=== PATIENT | male | born 1995 | race American Indian/Alaskan Native ===

== ENCOUNTER 2016-12-06 18:45 | Emergency (ER) | payer BC ==
[2016-12-07] MEDS ORDERED: FLEXERIL PO ONE (02:04)
[2016-12-07] MEDS ORDERED: NORCO 5/325 PO ONE (02:04)
--- NOTE | 2016-12-07 02:40 | Emergency Department Report ---
ED Male HPI - General Chief complaint: Urogenital-Male Stated complaint: MALE PARTS HURT Source: patient Mode of arrival: Ambulatory Limitations: No Limitations - Related Data Previous Rx's Medication Instructions Recorded Last Taken Type Acetaminophen/Codeine [Tylenol #3] 1 tab PO Q6H PRN #14 tab 02/05/15 Unknown Rx Amoxicillin/K Clav Tab [Augmentin 1 tab PO Q12HR #14 tab 02/05/15 Unknown Rx 875 mg] Cetirizine HCl [Allergy Relief] 10 mg PO DAILY #14 tablet 02/05/15 Unknown Rx Fluticasone [Flonase] 1 spray NS QDAY #1 bottle 02/05/15 Unknown Rx Ibuprofen [Motrin] 600 mg PO Q8H PRN #60 tablet 02/05/15 Unknown Rx Allergies Allergy/AdvReac Type Severity Reaction Status Date / Time No Known Allergies Allergy Unverified 02/05/15 03:39 ED Review of Systems ROS: Stated complaint: MALE PARTS HURT Other details as noted in HPI ED Past Medical Hx - Past Medical History Previous Medical History?: No - Surgical History Past Surgical History?: No - Social History Smoking Status: Never Smoker Substance Use Type: None - Medications Home Medications: Home Medications Medication Instructions Recorded Confirmed Last Taken Type Acetaminophen/Codeine [Tylenol #3] 1 tab PO Q6H PRN #14 tab 02/05/15 Unknown Rx Amoxicillin/K Clav Tab [Augmentin 1 tab PO Q12HR #14 tab 02/05/15 Unknown Rx 875 mg] Cetirizine HCl [Allergy Relief] 10 mg PO DAILY #14 tablet 02/05/15 Unknown Rx Fluticasone [Flonase] 1 spray NS QDAY #1 bottle 02/05/15 Unknown Rx Ibuprofen [Motrin] 600 mg PO Q8H PRN #60 tablet 02/05/15 Unknown Rx ED Physical Exam - General Limitations: No Limitations ED Course Vital Signs 12/06/16 18:52 Temperature 98.4 F Pulse Rate 65 Respiratory 16 Rate Blood Pressure 124/73 O2 Sat by Pulse 100 Oximetry Critical care attestation.: If time is entered above; I have spent that time in minutes in the direct care of this critically ill patient, excluding procedure time. ED Disposition Condition: Stable Referrals: PRIMARY CARE, [Primary Care Provider] - 3-5 Days
--- NOTE | 2016-12-07 03:02 | Ultrasound Report ---
FINAL REPORT PROCEDURE: US TESTICULAR DOPPLER COMP TECHNIQUE: Real-time vargas-scale and color flow Doppler sonography in multiple planes of the scrotum, testicles, and epididymes was performed. Velocity spectral waveform analysis Doppler imaging of the arterial inflow and venous outflow of the testicles was performed with image documentation. CPT 21601 and 33531 HISTORY: testicular swelling COMPARISON: No prior studies are available for comparison. FINDINGS: RIGHT TESTICLE: Size: 3.7 x 1.8 x 2.7 cm . Appearance: Normal size and echotexture . Arterial blood flow: Normal spectral waveforms, flow velocities and color flow images.. Venous blood flow: Normal spectral waveforms and color flow images. Right epididymis: There is a small cyst on the epididymal head this measures 3 x 2 x 5 millimeters. Hydrocele: None . LEFT TESTICLE Size: 3.7 x 1.8 x 2.5 cm . Appearance: Normal size and echotexture . Arterial blood flow: Normal spectral waveforms, flow velocities and color flow images.. Venous blood flow: Normal spectral waveforms and color flow images. Leftepididymis: Slight fluid around the left epididymal head is noted.. Hydrocele: None . IMPRESSION: Both testicles have normal size with appropriate echogenicity and blood flow. Small cysts in the right epididymal head. Slight fluid around the left epididymal head.
[2016-12-07 03:32] LABS: Bilirubin,Urine NEG (Negative); Blood,Urine NEG (Negative); Ketones,Urine 80 mg/dL (Negative); Leukocyte Esterase,Urine NEG (Negative); Mucus,Urine FEW /HPF; Nitrite,Urine NEG (Negative); Protein,Urine <15 mg/dL mg/dL (Negative); Urobilinogen,Urine < 2.0 mg/dL (<2.0); WBC,Urine < 1.0 /HPF (0.0-6.0)
[2016-12-07 04:20] VITALS: BP 113/75
== END 2016-12-07 04:19 | disposition home or self-care (01) ==
LOC: ED 18:45
DX: N50.89 Other specified disorders of the male genital organs (principal)
CPT/HCPCS: 81001; 93975

== ENCOUNTER 2018-07-31 15:12 | Emergency (ER) | payer BC ==
[2018-07-31 15:46] VITALS: BP 116/67
--- NOTE | 2018-07-31 15:46 | Emergency Department Report ---
Blank Doc - Documentation Documentation: 23 y o male presenst with headache x 3 days getting worse, intermittent, admits Nausea, 10/10 intensity, frontal and occipital photophobia, no trauma or injuries ACC eval
--- NOTE | 2018-07-31 17:35 | Emergency Department Report ---
ED Headache HPI - General Chief Complaint: Headache Stated Complaint: HEADACHE X 3 DAYS Time Seen by Provider: 07/31/18 15:44 Source: patient Exam Limitations: no limitations - History of Present Illness Initial Comments: This is a 23-year-old -[place] male who presents to the emergency room with a headache for 3 days. Past medical history of headache. Patient reports headache increased on awakening this morning. He reports global headache, constant throbbing, sensitivity to light and congestion. He denies recent injury, fever, aura, nausea, vomiting, cough, or chest pain. Timing/Duration: 24 hours Quality: constant, stabbing, throbbing Head Injury Location: global Recent Head Trauma: no recent headache/trauma Modifying Factors: improves with: exposure to light, medication Associated Symptoms: nausea/vomiting, nasal congestion. denies: confusion, fatigue, facial pain, fever/chills, flushing, loss of consciousness, nasal drainage, numbness in legs/feet, rash, seizures, sinus infection, stiff neck, vision changes, weakness Allergies/Adverse Reactions: Allergies No Known Allergies Allergy (Verified 07/31/18 15:14) Home Medications: Ambulatory Orders Acetaminophen/Codeine [Tylenol #3] 1 tab PO Q6H PRN #14 tab 02/05/15 Amoxicillin/K Clav Tab [Augmentin 875 mg] 1 tab PO Q12HR #14 tab 02/05/15 Cetirizine HCl [Allergy Relief] 10 mg PO DAILY #14 tablet 02/05/15 Fluticasone [Flonase] 1 spray NS QDAY #1 bottle 02/05/15 Ibuprofen [Motrin] 600 mg PO Q8H PRN #60 tablet 02/05/15 Meloxicam [Mobic] 7.5 mg PO QDAY #5 tablet 12/07/16 methOCARBAMOL [Robaxin TAB] 500 mg PO TID #15 tab 12/07/16 Amoxicillin/Potassium Clav [Augmentin 875-125 Tablet] 1 each PO BID #10 tablet 07/31/18 Fluticasone [Flonase] 1 spray NS QDAY #1 bottle 07/31/18 Ibuprofen [Motrin 800 MG tab] 800 mg PO Q8HR PRN #20 tablet 07/31/18 ED Review of Systems ROS: Stated complaint: HEADACHE X 3 DAYS Other details as noted in HPI Constitutional: denies: chills, fever ENT: congestion. denies: ear pain, throat pain Respiratory: denies: cough, shortness of breath, wheezing Cardiovascular: denies: chest pain, palpitations Gastrointestinal: denies: abdominal pain, nausea, diarrhea Skin: denies: rash, lesions Neurological: headache. denies: weakness, paresthesias Psychiatric: denies: anxiety, depression ED Past Medical Hx - Past Medical History Previous Medical History?: No - Surgical History Past Surgical History?: No - Social History Smoking Status: Never Smoker Substance Use Type: None - Medications Home Medications: Home Medications Medication Instructions Recorded Confirmed Last Taken Type Acetaminophen/Codeine [Tylenol #3] 1 tab PO Q6H PRN #14 tab 02/05/15 Unknown Rx Amoxicillin/K Clav Tab [Augmentin 1 tab PO Q12HR #14 tab 02/05/15 Unknown Rx 875 mg] Cetirizine HCl [Allergy Relief] 10 mg PO DAILY #14 tablet 02/05/15 Unknown Rx Fluticasone [Flonase] 1 spray NS QDAY #1 bottle 02/05/15 Unknown Rx Ibuprofen [Motrin] 600 mg PO Q8H PRN #60 tablet 02/05/15 Unknown Rx Meloxicam [Mobic] 7.5 mg PO QDAY #5 tablet 12/07/16 Unknown Rx methOCARBAMOL [Robaxin TAB] 500 mg PO TID #15 tab 12/07/16 Unknown Rx Amoxicillin/Potassium Clav 1 each PO BID #10 tablet 07/31/18 Unknown Rx [Augmentin 875-125 Tablet] Fluticasone [Flonase] 1 spray NS QDAY #1 bottle 07/31/18 Unknown Rx Ibuprofen [Motrin 800 MG tab] 800 mg PO Q8HR PRN #20 tablet 07/31/18 Unknown Rx ED Physical Exam - General Limitations: No Limitations General appearance: alert, in no apparent distress - ENT ENT exam: Present: mucous membranes moist, TM's normal bilaterally, normal external ear exam, other (turbinates congested with mucoid discharge, tenderness over frontal on percussion). Absent: normal orophraynx, mucous membranes dry - Neck Neck exam: Present: normal inspection - Respiratory Respiratory exam: Present: normal lung sounds bilaterally. Absent: respiratory distress - Cardiovascular Cardiovascular Exam: Present: regular rate, normal rhythm. Absent: systolic murmur, diastolic murmur, rubs, gallop - GI/Abdominal GI/Abdominal exam: Present: soft, normal bowel sounds - Neurological Exam Neurological exam: Present: alert, oriented X3 - Psychiatric Psychiatric exam: Present: normal affect, normal mood - Skin Skin exam: Present: warm, dry, intact, normal color. Absent: rash ED Course Vital Signs 07/31/18 07/31/18 15:44 17:55 Temperature 98.4 F Pulse Rate 54 L Respiratory 18 18 Rate Blood Pressure 116/67 [Right] O2 Sat by Pulse 99 Oximetry ED Medical Decision Making - Medical Decision Making Patient was examined by me. Vitals are normal and patient is in no acute distress. Given Toradol and Zofran. Findings are susceptible to acute sinusitis. Start Augmentin, Flonase, and ibuprofen. Patient informed of results. Plan discussed with patient to discharge home and treat outpatient. He agrees with ER plan. Patient discharged home in stable condition. Follow up with PCP in 2-3 days. Critical care attestation.: If time is entered above; I have spent that time in minutes in the direct care of this critically ill patient, excluding procedure time. ED Disposition Clinical Impression: Migraine Qualifiers: Migraine type: without aura Status migrainosus presence: with status migrainosus Intractability: not intractable Qualified Code(s): G43.001 - Migraine without aura, not intractable, with status migrainosus Sinusitis, acute Qualifiers: Sinusitis location: frontal Recurrence: non-recurrent Qualified Code(s): J01.10 - Acute frontal sinusitis, unspecified Disposition: - TO HOME OR SELFCARE Is pt being admited?: No Does the pt Need Aspirin: No Condition: Stable Instructions: Sinusitis (ED), Migraine Headache (ED) Additional Instructions: Use warm moist compresses over sinuses. Use ibuprofen or Tylenol for pain. Use nasal saline spray. Avoid taking antihistamines. Follow up with Primary Care Provider if fever, short of breath, chest pain, or symptoms do not improve as discussed. Prescriptions: Amoxicillin/Potassium Clav [Augmentin 875-125 Tablet] 1 each PO BID #10 tablet Fluticasone [Flonase] 1 spray NS QDAY #1 bottle Ibuprofen [Motrin 800 MG tab] 800 mg PO Q8HR PRN #20 tablet PRN Reason: Pain , Severe (7-10) Referrals: [facility] [Provider Group] - 3-5 Days PEREZ FRANCIS MD [Staff Physician] - 3-5 Days [facility] [Provider Group] - 3-5 Days Forms: Work/School Release Form(ED) Time of Disposition: 18:30
[2018-07-31] MEDS ORDERED: ZOFRAN ODT PO ONE (17:38)
[2018-07-31] MEDS ORDERED: TORADOL IM ONE (17:38)
== END 2018-07-31 18:42 | disposition home or self-care (01) ==
LOC: ED 15:12
DX: G43.001 Migraine without aura, not intractable, with status migrainosus (principal); J01.10 Acute frontal sinusitis, unspecified; Z79.899 Other long term (current) drug therapy
CPT/HCPCS: 96372; 99282; J1885; Q0162

== ENCOUNTER 2018-08-02 21:35 | Emergency (ER) | payer BC ==
--- NOTE | 2018-08-02 21:51 | Emergency Department Report ---
Blank Doc - Documentation Documentation: 23 y o male presents to ED cc of syncopal episode after 4 days of nausea, dizz iness and headache CT scan ordered Main side eval
[2018-08-02 22:03] LABS: Basophils % (Auto) 0.7 % (0.0-1.8); Eosinophils % (Auto) 0.6 % (0.0-4.3); Hematocrit 42.5 % (35.5-45.6); Hemoglobin 14.5 gm/dl (11.8-15.2); Lymphocytes # (Auto) 2.9 K/mm3 (1.2-5.4); Lymphocytes % (Auto) 53.1 % (13.4-35.0); Mean Corpuscular HGB Conc 34 % (32-34); Mean Corpuscular Volume 94 fl (84-94); Monocytes # (Auto) 0.6 K/mm3 (0.0-0.8); Monocytes % (Auto) 10.2 % (0.0-7.3); Platelet Count 198 K/mm3 (140-440); Red Blood Count 4.52 M/mm3 (3.65-5.03); Red Cell Distribution Width 12.7 % (13.2-15.2)
[2018-08-02 22:17] LABS: INR 1.02 (0.87-1.13)
[2018-08-02 22:21] LABS: Alanine Aminotransferase 14 units/L (7-56); Albumin 4.3 g/dL (3.9-5); BUN/Creatinine Ratio 14; Blood Urea Nitrogen 14 mg/dL (9-20); Calcium 8.8 mg/dL (8.4-10.2); Hemolysis Index 4
--- NOTE | 2018-08-02 23:14 | Cat Scan Report ---
PROCEDURE: CT HEAD/BRAIN WO CON TECHNIQUE: Computerized tomography of the head was performed without contrast material. CT DOSE LENGTH PRODUCT: 805.4 mGycm HISTORY: Syncope COMPARISONS: None . FINDINGS: There is no evidence of an acute intracranial process, intracranial hemorrhage or mass effect. The ventricles are normal size. The visualized portions of the orbits, paranasal and mastoid sinuses are unremarkable. The bony structures are unremarkable. There is no evidence of fracture. IMPRESSION: 1. No evidence of an acute intracranial process, intracranial hemorrhage or mass effect. 2. No evidence of fracture. If there is a clinical suspicion of an acute intracranial process, MRI brain may be helpful.. This document is electronically signed by Guerline Howell MD., Aug 02 2018 11:12:10 PM ET
[2018-08-02] MEDS ORDERED: ANTIVERT PO ONE (23:57)
[2018-08-02] MEDS ORDERED: NACL 0.9% 1000 ML 1,000 ML IV ONE (23:57)
[2018-08-03] MEDS ORDERED: FLEXERIL PO ONE (01:10)
--- NOTE | 2018-08-03 01:40 | Emergency Department Report ---
ED Dizziness HPI - General Chief Complaint: Syncope Stated Complaint: SYNCOPE/HEAD INJURY Time Seen by Provider: 08/02/18 21:48 Source: patient, family Mode of arrival: Ambulatory Limitations: No Limitations - History of Present Illness Initial Comments: 23 y o male presents to ED cc of syncopal episode after 4 days of nausea, dizziness and headache. He denies any fever, symptoms occur when he is exerting self. no chest pain or sob. MD Complaint: dizziness - Related Data Previous Rx's Medication Instructions Recorded Last Taken Type Acetaminophen/Codeine [Tylenol #3] 1 tab PO Q6H PRN #14 tab 02/05/15 Unknown Rx Amoxicillin/K Clav Tab [Augmentin 1 tab PO Q12HR #14 tab 02/05/15 Unknown Rx 875 mg] Cetirizine HCl [Allergy Relief] 10 mg PO DAILY #14 tablet 02/05/15 Unknown Rx Fluticasone [Flonase] 1 spray NS QDAY #1 bottle 02/05/15 Unknown Rx Ibuprofen [Motrin] 600 mg PO Q8H PRN #60 tablet 02/05/15 Unknown Rx Meloxicam [Mobic] 7.5 mg PO QDAY #5 tablet 12/07/16 Unknown Rx methOCARBAMOL [Robaxin TAB] 500 mg PO TID #15 tab 12/07/16 Unknown Rx Amoxicillin/Potassium Clav 1 each PO BID #10 tablet 07/31/18 Unknown Rx [Augmentin 875-125 Tablet] Fluticasone [Flonase] 1 spray NS QDAY #1 bottle 07/31/18 Unknown Rx Ibuprofen [Motrin 800 MG tab] 800 mg PO Q8HR PRN #20 tablet 07/31/18 Unknown Rx Cyclobenzaprine [Flexeril] 10 mg PO TID PRN #15 tablet 08/03/18 Unknown Rx Allergies Allergy/AdvReac Type Severity Reaction Status Date / Time No Known Allergies Allergy Verified 07/31/18 15:14 ED Review of Systems ROS: Stated complaint: SYNCOPE/HEAD INJURY Other details as noted in HPI Comment: All other systems reviewed and negative Endocrine: denies: intolerance to cold Gastrointestinal: denies: nausea, vomiting Genitourinary: denies: urgency Skin: denies: lesions Neurological: headache ED Past Medical Hx - Past Medical History Previous Medical History?: No - Surgical History Past Surgical History?: No - Social History Smoking Status: Never Smoker Substance Use Type: None - Medications Home Medications: Home Medications Medication Instructions Recorded Confirmed Last Taken Type Acetaminophen/Codeine [Tylenol #3] 1 tab PO Q6H PRN #14 tab 02/05/15 Unknown Rx Amoxicillin/K Clav Tab [Augmentin 1 tab PO Q12HR #14 tab 02/05/15 Unknown Rx 875 mg] Cetirizine HCl [Allergy Relief] 10 mg PO DAILY #14 tablet 02/05/15 Unknown Rx Fluticasone [Flonase] 1 spray NS QDAY #1 bottle 02/05/15 Unknown Rx Ibuprofen [Motrin] 600 mg PO Q8H PRN #60 tablet 02/05/15 Unknown Rx Meloxicam [Mobic] 7.5 mg PO QDAY #5 tablet 12/07/16 Unknown Rx methOCARBAMOL [Robaxin TAB] 500 mg PO TID #15 tab 12/07/16 Unknown Rx Amoxicillin/Potassium Clav 1 each PO BID #10 tablet 07/31/18 Unknown Rx [Augmentin 875-125 Tablet] Fluticasone [Flonase] 1 spray NS QDAY #1 bottle 07/31/18 Unknown Rx Ibuprofen [Motrin 800 MG tab] 800 mg PO Q8HR PRN #20 tablet 07/31/18 Unknown Rx Cyclobenzaprine [Flexeril] 10 mg PO TID PRN #15 tablet 08/03/18 Unknown Rx ED Physical Exam - General Limitations: No Limitations General appearance: alert, in no apparent distress - Head Head exam: Present: atraumatic, normocephalic - Eye Eye exam: Present: normal appearance, PERRL, EOMI Pupils: Present: normal accommodation - ENT ENT exam: Present: normal exam, normal orophraynx - Neck Neck exam: Present: normal inspection - Cardiovascular Cardiovascular Exam: Present: regular rate, normal rhythm - GI/Abdominal GI/Abdominal exam: Present: soft, normal bowel sounds - Rectal Rectal exam: Present: deferred - exam: Present: normal inspection - Extremities Exam Extremities exam: Present: normal inspection - Back Exam Back exam: Present: normal inspection - Neurological Exam Neurological exam: Present: alert, oriented X3 - Psychiatric Psychiatric exam: Present: normal affect - Skin Skin exam: Present: warm ED Course Vital Signs 08/02/18 08/02/18 08/02/18 21:38 21:50 23:34 Temperature 97.8 F 99.1 F Pulse Rate 48 L 66 88 Respiratory 18 18 13 Rate Blood Pressure 134/86 Blood Pressure 132/86 [Right] O2 Sat by Pulse 100 99 Oximetry 08/02/18 08/02/18 08/03/18 23:39 23:46 00:00 Temperature 98.0 F Pulse Rate 68 67 66 Respiratory 20 17 15 Rate Blood Pressure 113/73 115/78 Blood Pressure 113/83 [Right] O2 Sat by Pulse 100 100 100 Oximetry 08/03/18 08/03/18 08/03/18 00:15 00:30 00:52 Temperature Pulse Rate 62 63 Respiratory 12 15 Rate Blood Pressure 110/73 113/83 115/75 Blood Pressure [Right] O2 Sat by Pulse 100 99 100 Oximetry 08/03/18 08/03/18 08/03/18 01:00 01:15 01:30 Temperature Pulse Rate 68 64 66 Respiratory 15 13 11 L Rate Blood Pressure 115/75 117/82 115/75 Blood Pressure [Right] O2 Sat by Pulse 96 98 100 Oximetry ED Medical Decision Making - Lab Data Result diagrams: 08/02/18 21:54 08/02/18 21:54 Critical care attestation.: If time is entered above; I have spent that time in minutes in the direct care of this critically ill patient, excluding procedure time. ED Disposition Clinical Impression: Syncope Qualifiers: Syncope type: unspecified Qualified Code(s): R55 - Syncope and collapse Headache Qualifiers: Headache type: unspecified Headache chronicity pattern: acute headache Intractability: not intractable Qualified Code(s): R51 - Headache Disposition: DC-01 TO HOME OR SELFCARE Is pt being admited?: No Does the pt Need Aspirin: No Condition: Stable Instructions: Syncope (ED) Prescriptions: Cyclobenzaprine [Flexeril] 10 mg PO TID PRN #15 tablet PRN Reason: Muscle Spasm Referrals: ESTEFANY MCDUFFIE MD [Primary Care Provider] - 3-5 Days Forms: Accompanied Note
[2018-08-03 01:43] VITALS: BP 115/75
== END 2018-08-03 02:03 | disposition home or self-care (01) ==
LOC: ED 21:35
DX: R55 Syncope and collapse (principal); R51 Headache
CPT/HCPCS: 36415; 70450; 80053; 83615; 85025; 85610; 96360; 99284; J7030

== ENCOUNTER 2018-08-20 16:15 | Emergency (ER) | payer BC ==
--- NOTE | 2018-08-20 16:31 | Emergency Department Report ---
Blank Doc - Documentation Documentation: This is a 23-year-old male that presents with syncopal episode. Stated has been here 2 weeks ago for similar symptoms. Has neck and head pains. This initial assessment/diagnostic orders/clinical plan/treatment(s) is/are subject to change based on patient's health status, clinical progression and re- assessment by fellow clinical providers in the ED. Further treatment and workup at subsequent clinical providers discretion. Patient/guardians urged not to elope from the ED as their condition may be serious if not clinically assessed and managed. Initial orders include: 1- Patient sent to MAIN ED for further evaluation and treatment 2- labs 3- CT head/neck 4- EKG
[2018-08-20 17:22] LABS: Creatine Kinase MB 2.4 ng/mL (0.0-4.0)
[2018-08-20 17:23] LABS: Alanine Aminotransferase 18 units/L (7-56); Albumin 4.4 g/dL (3.9-5); BUN/Creatinine Ratio 18; Blood Urea Nitrogen 18 mg/dL (9-20); Calcium 9.5 mg/dL (8.4-10.2); Hemolysis Index 20
[2018-08-20 17:38] LABS: INR 1.05 (0.87-1.13)
[2018-08-20 17:39] LABS: Basophils % (Auto) 1.1 % (0.0-1.8); Eosinophils % (Auto) 0.1 % (0.0-4.3); Hematocrit 44.3 % (35.5-45.6); Hemoglobin 14.9 gm/dl (11.8-15.2); Lymphocytes # (Auto) 1.3 K/mm3 (1.2-5.4); Lymphocytes % (Auto) 30.4 % (13.4-35.0); Mean Corpuscular HGB Conc 34 % (32-34); Mean Corpuscular Volume 94 fl (84-94); Monocytes # (Auto) 0.4 K/mm3 (0.0-0.8); Monocytes % (Auto) 9.4 % (0.0-7.3); Partial Thromboplastin Time 28.2 Sec. (24.2-36.6); Platelet Count 217 K/mm3 (140-440); Red Cell Distribution Width 12.2 % (13.2-15.2)
--- NOTE | 2018-08-20 18:57 | Cat Scan Report ---
PROCEDURE: CT HEAD/BRAIN WO CON TECHNIQUE: Computerized tomography of the head was performed without contrast material. CT DOSE LENGTH PRODUCT: 805.4 mGycm HISTORY: Syncope COMPARISONS: Prior CT scan of the brain 08/02/2018 . FINDINGS: Brain: Brain density appears normal. No evidence of intracranial hemorrhage. No parenchymal hemorr pati, mass lesions or mass effect are seen. No abnormal extra-axial fluid collects or masses are see n. Ventricles: Ventricles are normal size and are midline. Bone Windows: No evidence of skull fracture. Paranasal sinuses: Visualized portions are clear.. Mastoid air cells: Clear. IMPRESSION: Negative unenhanced CT scan of the brain. This document is electronically signed by Daniel Mata MD., August 20 2018 06:55:28 PM ET
--- NOTE | 2018-08-20 19:06 | Cat Scan Report ---
PROCEDURE: CT CERVICAL SPINE WO CON TECHNIQUE: Computerized tomography of the cervical spine was performed from the skull base to T1 wit hout contrast material. CT DOSE LENGTH PRODUCT: 439.8 mGycm HISTORY: Syncope COMPARISONS: None . FINDINGS: No fracture or subluxation is visualized. Minimal anterior osteophytic spurring visualized. C5-6 and C6-7 disc space. Posterior elements are intact. Prevertebral soft tissues appear normal. No focal dis c herniations or spinal stenosis are visualized. IMPRESSION: Minimal degenerative disc disease as described. No fracture or subluxation is visualized . . This document is electronically signed by Daniel Mata MD., August 20 2018 07:04:18 PM ET
[2018-08-20] MEDS ORDERED: FLEXERIL PO ONE (19:28)
[2018-08-20] MEDS ORDERED: NACL 0.9% 1000 ML 1,000 ML IV ONE (19:28)
[2018-08-20] MEDS ORDERED: TORADOL IV ONE (19:28)
[2018-08-20] MEDS ORDERED: REGLAN IV ONE (19:29)
--- NOTE | 2018-08-20 22:50 | Emergency Department Report ---
ED General Adult HPI - General Chief complaint: Headache Stated complaint: HEAD AND NECK PAIN Time Seen by Provider: 08/20/18 16:29 Source: patient Mode of arrival: Ambulatory Limitations: No Limitations - History of Present Illness Initial comments: Patient is a 23-year-old male with no past medical history presents to the ED with the complaint of acute onset persistent posterior neck muscle pain and aches, headache, nausea and vomiting and syncopal episodes in the last 4 hours. Patient states that the neck pain is intermittent and persistent. The patient states that about 3 weeks ago he was evaluated for similar symptoms and was advised that he was dehydrated as the cause of his syncope. Patient states that he was not referred to any other primary care physician or specialist for evaluation. Patient denies change in vision, loss of consciousness, seizures, chest pain, shortness of breath, fever, chills, abdominal pain, sore throat or nasal and sinus congestion. MD Complaint: syncope, nausea, vomiting, neck pain, headache -: Sudden, hour(s) (12) Location: head, neck Radiation: non-radiation Severity scale (0 -10): 10 Quality: aching, sharp Consistency: constant Improves with: none Worsens with: none Associated Symptoms: headaches, nausea/vomiting, syncope. denies: confusion, chest pain, diaphoresis, fever/chills, loss of appetite, malaise, rash, seizure, shortness of breath Treatments Prior to Arrival: none - Related Data Previous Rx's Medication Instructions Recorded Last Taken Type Acetaminophen/Codeine [Tylenol #3] 1 tab PO Q6H PRN #14 tab 02/05/15 Unknown Rx Amoxicillin/K Clav Tab [Augmentin 1 tab PO Q12HR #14 tab 02/05/15 Unknown Rx 875 mg] Cetirizine HCl [Allergy Relief] 10 mg PO DAILY #14 tablet 02/05/15 Unknown Rx Fluticasone [Flonase] 1 spray NS QDAY #1 bottle 02/05/15 Unknown Rx Ibuprofen [Motrin] 600 mg PO Q8H PRN #60 tablet 02/05/15 Unknown Rx Meloxicam [Mobic] 7.5 mg PO QDAY #5 tablet 12/07/16 Unknown Rx methOCARBAMOL [Robaxin TAB] 500 mg PO TID #15 tab 12/07/16 Unknown Rx Amoxicillin/Potassium Clav 1 each PO BID #10 tablet 07/31/18 Unknown Rx [Augmentin 875-125 Tablet] Fluticasone [Flonase] 1 spray NS QDAY #1 bottle 07/31/18 Unknown Rx Ibuprofen [Motrin 800 MG tab] 800 mg PO Q8HR PRN #20 tablet 07/31/18 Unknown Rx Cyclobenzaprine [Flexeril] 10 mg PO TID PRN #15 tablet 08/03/18 Unknown Rx Baclofen [Lioresal] 10 mg PO Q8H PRN #21 tab 08/20/18 Unknown Rx Ibuprofen [Motrin] 600 mg PO Q8H PRN #20 tablet 08/20/18 Unknown Rx Meclizine [Antivert] 25 mg PO Q8H PRN #30 tablet 08/20/18 Unknown Rx Allergies Allergy/AdvReac Type Severity Reaction Status Date / Time No Known Allergies Allergy Verified 07/31/18 15:14 ED Review of Systems ROS: Stated complaint: HEAD AND NECK PAIN Other details as noted in HPI Comment: All other systems reviewed and negative Constitutional: no symptoms reported. denies: chills, fever Eyes: denies: eye pain, eye discharge, vision change ENT: denies: ear pain, throat pain Respiratory: denies: cough, shortness of breath, wheezing Cardiovascular: denies: chest pain, palpitations Endocrine: no symptoms reported Gastrointestinal: nausea, vomiting. denies: abdominal pain, diarrhea Genitourinary: denies: urgency, dysuria Musculoskeletal: arthralgia (neck pain). denies: back pain, joint swelling Skin: denies: rash, lesions Neurological: headache, other (syncope). denies: weakness, paresthesias Psychiatric: denies: anxiety, depression Hematological/Lymphatic: denies: easy bleeding, easy bruising ED Past Medical Hx - Past Medical History Previous Medical History?: No - Surgical History Past Surgical History?: No - Social History Smoking Status: Never Smoker Substance Use Type: None - Medications Home Medications: Home Medications Medication Instructions Recorded Confirmed Last Taken Type Acetaminophen/Codeine [Tylenol #3] 1 tab PO Q6H PRN #14 tab 02/05/15 Unknown Rx Amoxicillin/K Clav Tab [Augmentin 1 tab PO Q12HR #14 tab 02/05/15 Unknown Rx 875 mg] Cetirizine HCl [Allergy Relief] 10 mg PO DAILY #14 tablet 02/05/15 Unknown Rx Fluticasone [Flonase] 1 spray NS QDAY #1 bottle 02/05/15 Unknown Rx Ibuprofen [Motrin] 600 mg PO Q8H PRN #60 tablet 02/05/15 Unknown Rx Meloxicam [Mobic] 7.5 mg PO QDAY #5 tablet 12/07/16 Unknown Rx methOCARBAMOL [Robaxin TAB] 500 mg PO TID #15 tab 12/07/16 Unknown Rx Amoxicillin/Potassium Clav 1 each PO BID #10 tablet 07/31/18 Unknown Rx [Augmentin 875-125 Tablet] Fluticasone [Flonase] 1 spray NS QDAY #1 bottle 07/31/18 Unknown Rx Ibuprofen [Motrin 800 MG tab] 800 mg PO Q8HR PRN #20 tablet 07/31/18 Unknown Rx Cyclobenzaprine [Flexeril] 10 mg PO TID PRN #15 tablet 08/03/18 Unknown Rx Baclofen [Lioresal] 10 mg PO Q8H PRN #21 tab 08/20/18 Unknown Rx Ibuprofen [Motrin] 600 mg PO Q8H PRN #20 tablet 08/20/18 Unknown Rx Meclizine [Antivert] 25 mg PO Q8H PRN #30 tablet 08/20/18 Unknown Rx ED Physical Exam - General Limitations: No Limitations General appearance: alert, in no apparent distress - Head Head exam: Present: atraumatic, normocephalic, normal inspection - Eye Eye exam: Present: normal appearance, PERRL, EOMI. Absent: scleral icterus, conjunctival injection, periorbital swelling, periorbital tenderness Pupils: Present: normal accommodation - ENT ENT exam: Present: normal exam, normal orophraynx, mucous membranes moist, TM's normal bilaterally, normal external ear exam - Neck Neck exam: Present: normal inspection, tenderness (palpable cervical paraspinal musculoskeletal tenderness), full ROM. Absent: meningismus, lymphadenopathy - Respiratory Respiratory exam: Present: normal lung sounds bilaterally. Absent: respiratory distress, wheezes, rales, rhonchi, chest wall tenderness, accessory muscle use, decreased breath sounds, prolonged expiratory - Cardiovascular Cardiovascular Exam: Present: regular rate, normal rhythm, normal heart sounds. Absent: systolic murmur, diastolic murmur, rubs, gallop - GI/Abdominal GI/Abdominal exam: Present: soft, normal bowel sounds. Absent: distended, tenderness, guarding, rebound, hyperactive bowel sounds, hypoactive bowel sounds, organomegaly - Rectal Rectal exam: Present: deferred - Extremities Exam Extremities exam: Present: normal inspection, full ROM, normal capillary refill - Back Exam Back exam: Present: normal inspection, full ROM. Absent: tenderness, CVA tenderness (L), muscle spasm - Neurological Exam Neurological exam: Present: alert, oriented X3, CN II-XII intact, normal gait, reflexes normal - Psychiatric Psychiatric exam: Present: normal affect, normal mood - Skin Skin exam: Present: warm, dry, intact, normal color. Absent: rash ED Course Vital Signs 08/20/18 08/20/18 08/20/18 16:30 19:55 21:56 Temperature 98.7 F Pulse Rate 55 L 52 L Respiratory 18 18 18 Rate Blood Pressure 119/73 118/60 O2 Sat by Pulse 100 100 Oximetry - Reevaluation(s) Reevaluation #1: 08/20/18 23:03 Patient is alert and oriented 3 and is not in distress with normal vital signs. EKG shows sinus bradycardia with a heart rate of 55 bpm. Lab test results were reviewed and are all unremarkable. D-dimer is negative and first and second troponin levels are unremarkable. Head CT scan without contrast shows no acute intracranial abnormalities. C-spine CT scan without contrast shows no acute fractures or subluxations. The patient was treated for pain in the ED and also given normal saline 1 L IV bolus. On reevaluation, patient's pain is completely resolved. The orthostatic blood pressure and unremarkable. Patient is ambulatory in the ED with no difficulty and no dizziness or vertigo. Patient states that all his symptoms have resolved and is feeling better. The patient was discharged home on medications and referral to Dr. Mauro Ballard mri assistant fire production operator for further evaluation. Patient is advised to contact his office and schedule an appointment. ED Medical Decision Making - Lab Data Result diagrams: 08/20/18 16:35 08/20/18 16:35 - EKG Data EKG shows normal: sinus rhythm Rate: bradycardia - EKG Data 08/20/18 23:08 Sinus Bradycardia with a Ventricular rate of 55 bpm; no ST and T wave abnormalities. - Radiology Data Radiology results: report reviewed, image reviewed Head CT scan w/o contrast: No acute intracranial abnormalities C-spine CT Scan w/o contrast: No acute fractures or subluxations - Medical Decision Making Patient is alert and oriented 3 and is not in distress with normal vital signs. EKG shows sinus bradycardia with a heart rate of 55 bpm. Lab test results were reviewed and are all unremarkable. D-dimer is negative and first and second troponin levels are unremarkable. Head CT scan without contrast shows no acute intracranial abnormalities. C-spine CT scan without contrast shows no acute fractures or subluxations. The patient was treated for pain in the ED and also given normal saline 1 L IV bolus. On reevaluation, patient's pain is completely resolved. The orthostatic blood pressure and unremarkable. Patient is ambulatory in the ED with no difficulty and no dizziness or vertigo. Patient states that all his symptoms have resolved and is feeling better. The patient was discharged home on medications and referral to Dr. Mauro Ballard mri assistant fire production operator for further evaluation. Patient is advised to contact his office and schedule an appointment. - Differential Diagnosis Syncope; Cervical sprain; Tension headache, Nausea and vomiting Critical care attestation.: If time is entered above; I have spent that time in minutes in the direct care of this critically ill patient, excluding procedure time. ED Disposition Clinical Impression: Syncope and collapse, Cervical paraspinous muscle spasm Nausea with vomiting Qualifiers: Vomiting type: unspecified Vomiting Intractability: non-intractable Qualified Code(s): R11.2 - Nausea with vomiting, unspecified Tension type headache Qualifiers: Headache chronicity pattern: acute headache Intractability: not intractable Qualified Code(s): G44.209 - Tension-type headache, unspecified, not intractable Disposition: DC-01 TO HOME OR SELFCARE Is pt being admited?: No Does the pt Need Aspirin: No Condition: Stable Instructions: Syncope (ED), Acute Nausea and Vomiting (ED), Tension Headache (ED), Cervical Sprain (ED) Additional Instructions: Take medications with food, drink plenty of fluids and follow-up with Dr. Parker, the mri assistant as advised. Please contact his office as scheduled appointment for further evaluation. Return to the ED immediately if symptoms get worse. Prescriptions: Meclizine [Antivert] 25 mg PO Q8H PRN #30 tablet PRN Reason: Vertigo Baclofen [Lioresal] 10 mg PO Q8H PRN #21 tab PRN Reason: Spasms Ibuprofen [Motrin] 600 mg PO Q8H PRN #20 tablet PRN Reason: Pain Referrals: JOSE PARKER MD [Staff Physician] - 3-5 Days Time of Disposition: 22:53 Print Language: RWANDAN
[2018-08-20 23:09] VITALS: BP 115/58
== END 2018-08-20 23:10 | disposition home or self-care (01) ==
LOC: ED 16:15
DX: G44.209 Tension-type headache, unspecified, not intractable (principal); R55 Syncope and collapse; R11.2 Nausea with vomiting, unspecified; M62.838 Other muscle spasm
CPT/HCPCS: 36415; 70450; 72125; 80053; 82550; 82553; 84484; 85025; 85379; 85610; 85730; 93005; 93010; 96361; 96374; 96375; 99284; J1885; J2765; J7030

== ENCOUNTER 2018-10-23 05:50 | Emergency (ER) | payer BC ==
--- NOTE | 2018-10-23 06:34 | Emergency Department Report ---
ED Fall HPI - General Chief Complaint: Fall Stated Complaint: FALL Time Seen by Provider: 10/23/18 06:23 Source: patient Mode of arrival: Wheelchair Limitations: No Limitations - History of Present Illness Initial Comments: 23-year-old male presents to the hospital after fall down 18 stairs 30 minutes prior to arrival. Patient's broke issue got caught at the top step and he tumbled down 18 steps and hit the back of his head on a dresser. Patient states he passed out for about 30 seconds. He complains of posterior head pain, neck pain, and left knee pain. No blurry vision, nausea, vomiting, focal weakness, or focal numbness reported. Painful left knee is reported to associated in intensity and cannot bear weight. - Related Data Previous Rx's Medication Instructions Recorded Last Taken Type Acetaminophen/Codeine [Tylenol #3] 1 tab PO Q6H PRN #14 tab 02/05/15 Unknown Rx Amoxicillin/K Clav Tab [Augmentin 1 tab PO Q12HR #14 tab 02/05/15 Unknown Rx 875 mg] Cetirizine HCl [Allergy Relief] 10 mg PO DAILY #14 tablet 02/05/15 Unknown Rx Fluticasone [Flonase] 1 spray NS QDAY #1 bottle 02/05/15 Unknown Rx Ibuprofen [Motrin] 600 mg PO Q8H PRN #60 tablet 02/05/15 Unknown Rx Meloxicam [Mobic] 7.5 mg PO QDAY #5 tablet 12/07/16 Unknown Rx methOCARBAMOL [Robaxin TAB] 500 mg PO TID #15 tab 12/07/16 Unknown Rx Amoxicillin/Potassium Clav 1 each PO BID #10 tablet 07/31/18 Unknown Rx [Augmentin 875-125 Tablet] Fluticasone [Flonase] 1 spray NS QDAY #1 bottle 07/31/18 Unknown Rx Ibuprofen [Motrin 800 MG tab] 800 mg PO Q8HR PRN #20 tablet 07/31/18 Unknown Rx Cyclobenzaprine [Flexeril] 10 mg PO TID PRN #15 tablet 08/03/18 Unknown Rx Baclofen [Lioresal] 10 mg PO Q8H PRN #21 tab 08/20/18 Unknown Rx Ibuprofen [Motrin] 600 mg PO Q8H PRN #20 tablet 08/20/18 Unknown Rx Meclizine [Antivert] 25 mg PO Q8H PRN #30 tablet 08/20/18 Unknown Rx Ibuprofen [Motrin] 600 mg PO Q8H PRN #14 tablet 10/23/18 Unknown Rx traMADol [Ultram 50 MG tab] 50 mg PO Q6HR PRN #14 tablet 10/23/18 Unknown Rx Allergies Allergy/AdvReac Type Severity Reaction Status Date / Time No Known Allergies Allergy Verified 07/31/18 15:14 ED Review of Systems ROS: Stated complaint: FALL Other details as noted in HPI Comment: All other systems reviewed and negative ED Past Medical Hx - Past Medical History Previous Medical History?: Yes Additional medical history: Headaches - Surgical History Past Surgical History?: No - Social History Smoking Status: Never Smoker - Medications Home Medications: Home Medications Medication Instructions Recorded Confirmed Last Taken Type Acetaminophen/Codeine [Tylenol #3] 1 tab PO Q6H PRN #14 tab 02/05/15 Unknown Rx Amoxicillin/K Clav Tab [Augmentin 1 tab PO Q12HR #14 tab 02/05/15 Unknown Rx 875 mg] Cetirizine HCl [Allergy Relief] 10 mg PO DAILY #14 tablet 02/05/15 Unknown Rx Fluticasone [Flonase] 1 spray NS QDAY #1 bottle 02/05/15 Unknown Rx Ibuprofen [Motrin] 600 mg PO Q8H PRN #60 tablet 02/05/15 Unknown Rx Meloxicam [Mobic] 7.5 mg PO QDAY #5 tablet 12/07/16 Unknown Rx methOCARBAMOL [Robaxin TAB] 500 mg PO TID #15 tab 12/07/16 Unknown Rx Amoxicillin/Potassium Clav 1 each PO BID #10 tablet 07/31/18 Unknown Rx [Augmentin 875-125 Tablet] Fluticasone [Flonase] 1 spray NS QDAY #1 bottle 07/31/18 Unknown Rx Ibuprofen [Motrin 800 MG tab] 800 mg PO Q8HR PRN #20 tablet 07/31/18 Unknown Rx Cyclobenzaprine [Flexeril] 10 mg PO TID PRN #15 tablet 08/03/18 Unknown Rx Baclofen [Lioresal] 10 mg PO Q8H PRN #21 tab 08/20/18 Unknown Rx Ibuprofen [Motrin] 600 mg PO Q8H PRN #20 tablet 08/20/18 Unknown Rx Meclizine [Antivert] 25 mg PO Q8H PRN #30 tablet 08/20/18 Unknown Rx Ibuprofen [Motrin] 600 mg PO Q8H PRN #14 tablet 10/23/18 Unknown Rx traMADol [Ultram 50 MG tab] 50 mg PO Q6HR PRN #14 tablet 10/23/18 Unknown Rx ED Physical Exam - General Limitations: No Limitations - Other Other exam information: General: no acute distress Head: Atraumatic, normocephalic, posterior scalp tenderness without hematoma or laceration Eyes: Normal appearance, pupils equal and reactive to light, extraocular movements intact ENT: normal oropharynx Neck: Normal appearance, no stridor, no meningismus, mild midline tenderness at lower cervical spine. Greatest tenderness at left cervical paraspinal and trapezius muscles. Cardiovascular: Regular rate and rhythm Chest: Clear to auscultation, no wheezes, rales, or crackles Abdomen: nondistended, soft, nontender, no rebound or guarding Extremity: Normal appearance, no deformity, bilateral knee pain anteriorly and diffusely. Also includes patella and quadriceps tendon. Unable to bear weight on left leg and limited flexion secondary to pain 2+ DP pulses equal bilaterally Neuro: Alert and oriented 3, clear speech, no gross motor or sensory deficit Skin: No warmth, erythema ED Course Vital Signs 10/23/18 10/23/18 10/23/18 06:14 06:33 07:25 Temperature 97.9 F Pulse Rate 57 L 58 L 56 L Respiratory 16 18 18 Rate Blood Pressure 110/65 Blood Pressure 108/55 118/76 [Left] O2 Sat by Pulse 98 100 100 Oximetry ED Medical Decision Making - Radiology Data Radiology results: report reviewed b/l knee xray: naf ct head: naf ct cervical spine: naf - Medical Decision Making fall without acute brian injury toradol given in ed plan to d/c with f/u and meds cutches and imobilizer - Differential Diagnosis fracture, contusion, sprain, concussion, ICH Critical Care Time: No Critical care attestation.: If time is entered above; I have spent that time in minutes in the direct care of this critically ill patient, excluding procedure time. ED Disposition Clinical Impression: Fall down stairs, Concussion, Knee sprain, bilateral, Cervical sprain Disposition: OP ADMIT IP TO THIS HOSP Is pt being admited?: No Does the pt Need Aspirin: No Condition: Stable Instructions: Fall Prevention (ED), Knee Sprain (ED), Cervical Sprain (ED) Additional Instructions: Take the medication is prescribed. Follow-up with your doctor or the doctor/clinic provided. Return if symptoms worsen as indicated by your discharge instructions. Prescriptions: Ibuprofen [Motrin] 600 mg PO Q8H PRN #14 tablet PRN Reason: Pain traMADol [Ultram 50 MG tab] 50 mg PO Q6HR PRN #14 tablet PRN Reason: Pain Referrals: AICHA ESPINO MD [Primary Care Provider] - 3-5 Days KYARA CARNEY MD [Staff Physician] - 3-5 Days (orthopedics ) Forms: Work/School Release Form(ED) Time of Disposition: 09:15
[2018-10-23] MEDS ORDERED: TORADOL IV ONE (07:00)
[2018-10-23] MEDS ORDERED: TORADOL ONE (07:14)
[2018-10-23 10:07] VITALS: BP 108/65
--- NOTE | 2018-10-23 21:14 | Cat Scan Report ---
CT cervical spine wo con INDICATION / CLINICAL INFORMATION: fall, head injury brief loss of consciousness, neck pain. TECHNIQUE: Noncontrast cervical spine CT with multiplanar reformats. All CT scans at this location are performed using CT dose reduction for ALARA by means of automated exposure control. COMPARISON: Noncontrast cervical spine CT performed earlier the same day FINDINGS: No acute fracture or malalignment of the cervical spine. No significant degenerative change is presen t. No significant soft tissue abnormality is seen. There is no abnormal thickening of prevertebral so ft tissues. IMPRESSION: 1. No acute cervical spine injury. Signer Name: Adam Chavez MD Signed: 10/23/2018 9:09 PM Workstation Name: [id number]
--- NOTE | 2018-10-23 21:15 | Cat Scan Report ---
CT head/brain wo con INDICATION: fall, head injury brief loc TECHNIQUE: Routine CT head without contrast. Sagittal and coronal reformatted images were obtained. A ll CT scans at this location are performed using CT dose reduction for ALARA by means of automated ex posure control. COMPARISON: CT scan obtained one hour earlier FINDINGS: Please note these images are obtained at 8:06 AM this morning however, these images were po pulated in the [facility] P[facility] only at 8:[address] findings remain unchanged. BRAIN / INTRACRANIAL CONTENTS: No acute hemorrhage, mass effect, midline shift, hydrocephalus, or acu te, large territorial infarct. No chronic infarct or focal atrophy. Normal brain volume and ventricul ar/sulcal size for age. No significant white matter abnormality. CRANIOCERVICAL JUNCTION: No significant abnormality. ORBITS: No significant abnormality of visualized orbits. SINUSES / MASTOIDS: No significant abnormality of the visualized paranasal sinuses or mastoid air christoph ls. ADDITIONAL FINDINGS: None. IMPRESSION: CT findings remain unchanged since CT scan from one hour earlier . Signer Name: Sami Keyes MD Signed: 10/23/2018 9:10 PM Workstation Name: [id number]
--- NOTE | 2018-10-24 15:05 | XRay Report ---
Bilateral knees-8 total views INDICATION: FELL DOWN STAIRS LANDING ON [place] . COMPARISON: None. IMPRESSION: No acute osseous or soft tissue abnormality. No significant DJD. Signer Name: Lavell Hall MD Signed: 10/23/2018 7:16 AM Workstation Name: [id number]
== END 2018-10-23 09:47 | disposition admitted as inpatient to this hospital (09) ==
LOC: ED 05:50
DX: S06.0X1A Concussion with loss of consciousness of 30 minutes or less, initial encounter (principal); S83.91XA Sprain of unspecified site of right knee, initial encounter; S83.92XA Sprain of unspecified site of left knee, initial encounter; S13.9XXA Sprain of joints and ligaments of unspecified parts of neck, initial encounter; Z79.899 Other long term (current) drug therapy; Z79.1 Long term (current) use of non-steroidal anti-inflammatories (NSAID); W10.9XXA Fall (on) (from) unspecified stairs and steps, initial encounter; Y93.89 Activity, other specified; Y92.098 Other place in other non-institutional residence as the place of occurrence of the external cause; Y99.8 Other external cause status
CPT/HCPCS: 29505; 70450; 72125; 73564; 96374; 99284; J1885

== ENCOUNTER 2018-12-09 16:52 | Emergency (ER) | payer BC ==
[2018-12-09 17:08] VITALS: BP 116/64
--- NOTE | 2018-12-09 17:13 | Emergency Department Report ---
Chief Complaint: Skin/Abscess/Foreign Body Stated Complaint: SKIN IRRIATION Time Seen by Provider: 12/09/18 17:05 - HPI History of Present Illness: This is a 23-year-old male nontoxic well in appearance with no signs of distress presents to the ED with complaint of a rash that is intermittent to hands and BLE. Patient reports rash is resolved after he arrived. States it usually last for 1-2 hours then resolve. Patient denies any swelling, pus, or drainage. Patient denies any other symptoms. Denies any fever, chills, headache, nausea, vomiting, chest pain or SOB. - ROS Review of Systems: Constitutional: denies: chills, fever Respiratory: denies: cough, shortness of breath, wheezing Cardiovascular: denies: chest pain, palpitations Gastrointestinal: denies: abdominal pain, nausea, diarrhea Skin: rash (left posterior thigh). denies: lesions Neurological: denies: headache, weakness, paresthesias Psychiatric: denies: anxiety, depression - Exam Vital Signs: Vital Signs 12/09/18 17:05 Temperature 98.8 F Pulse Rate 55 L Respiratory 16 Rate Blood Pressure 116/64 O2 Sat by Pulse 98 Oximetry Physical Exam: General: No distress. Alert and acting appropriately. HEENT: No Periorbital Edema, No Conjuctival Injection, No Chemosis, No Perioral Edema, No Tongue Edema, No Uvular Edema, No Compromised Airway, No Drooling Lungs: Yes Good Air Exchange (Normal Breath Sounds), No Wheezes, No Ronchi, No Stridor, No Cough, No Labored Respirations, No Retractions, No Use of Accessory Muscles, No Other Abnormal Lung Sounds Heart: Yes Regular, No Murmur Skin: No Urticarial Rash, No Morbilliform rash, No Bulla(e), No Excoriations, No Weeping, No Tenderness, No Erythema, No Edema, No Encrustations MSE screening note: Focused history and physical exam performed. Due to findings the following was ordered: ED Medical Decision Making - Medical Decision Making Patient is stable and was examined by me. This is a non-emergent complaint. At time of exam rash was resolved. Patient denies dyspnea, drooling, or pruritus. Referral to dermatology for continued care. If symptoms worsen with dyspnea included to return to emergency room as soon as possible. At time of discharge, the patient does not seem toxic or ill in appearance. No acute signs of distress noted. Patient agrees to discharge treatment plan of care. No further questions noted by the patient. ED Disposition for MSE Clinical Impression: Feared complaint without diagnosis Disposition: DC-01 TO HOME OR SELFCARE Is pt being admited?: No Does the pt Need Aspirin: No Condition: Stable Instructions: Acute Rash (ED) Additional Instructions: If rash reoccur take [id number] benadryl and apply topical hydrocortisone cream. I have provided a list of commercial [employer] insurance agent for you to follow up with below. Return to the ER if you begin to have difficulty swallowing or breathing. Referrals: [facility] [Provider Group] - 3-5 Days [facility] [Outside] - 3-5 Days [facility] [Outside] - 3-5 Days [facility] [Outside] - 3-5 Days Time of Disposition: 17:25
== END 2018-12-09 17:39 | disposition home or self-care (01) ==
LOC: ED 16:52
DX: Z71.1 Person with feared health complaint in whom no diagnosis is made (principal)
CPT/HCPCS: 99281

== ENCOUNTER 2019-02-24 18:16 | Emergency (ER) | payer SELFPAY ==
--- NOTE | 2019-02-24 20:00 | Emergency Department Report ---
ED Syncope HPI - General Chief Complaint: Syncope Stated Complaint: SYNCOPE Time Seen by Provider: 02/24/19 19:43 Source: patient, family ( is bedside), old records - History of Present Illness Initial Comments: Mr. Mata is a 23-year-old male with history of anxiety who presents with syncopal episode today. When he got out of the bathroom, he felt his heart racing. He felt as if he is going to pass out. While walking toward another room, he lost consciousness for less than 1 minute according to the who witnessed the episode. He has been seen twice this summer for syncope. He does not have a primary care physician. He was told that his blood was "thin". He has racing thoughts at night. He has insomnia. He has felt "stressed". In the past he's had suicidal ideation. He currently denies suicidal homicidal ideation. He drinks Ensurre in order to keep his weight up because he has poor appetite. Timing/Prior Episodes: recent history, remote history Precipitating Factors: Positive: lightheadedness Context: sitting, standing Loss of Consciousness: brief (seconds) Current Symptoms: back to normal - Related Data Allergies/Adverse Reactions: Allergies No Known Allergies Allergy (Verified 12/09/18 16:55) Home Medications: Ambulatory Orders Acetaminophen/Codeine [Tylenol #3] 1 tab PO Q6H PRN #14 tab 02/05/15 Amoxicillin/K Clav Tab [Augmentin 875 mg] 1 tab PO Q12HR #14 tab 02/05/15 Cetirizine HCl [Allergy Relief] 10 mg PO DAILY #14 tablet 02/05/15 Fluticasone [Flonase] 1 spray NS QDAY #1 bottle 02/05/15 Ibuprofen [Motrin] 600 mg PO Q8H PRN #60 tablet 02/05/15 Meloxicam [Mobic] 7.5 mg PO QDAY #5 tablet 12/07/16 methOCARBAMOL [Robaxin TAB] 500 mg PO TID #15 tab 12/07/16 Amoxicillin/Potassium Clav [Augmentin 875-125 Tablet] 1 each PO BID #10 tablet 07/31/18 Fluticasone [Flonase] 1 spray NS QDAY #1 bottle 07/31/18 Ibuprofen [Motrin 800 MG tab] 800 mg PO Q8HR PRN #20 tablet 07/31/18 Cyclobenzaprine [Flexeril] 10 mg PO TID PRN #15 tablet 08/03/18 Baclofen [Lioresal] 10 mg PO Q8H PRN #21 tab 08/20/18 Ibuprofen [Motrin] 600 mg PO Q8H PRN #20 tablet 08/20/18 Meclizine [Antivert] 25 mg PO Q8H PRN #30 tablet 08/20/18 Ibuprofen [Motrin] 600 mg PO Q8H PRN #14 tablet 10/23/18 traMADoL [Ultram 50 MG tab] 50 mg PO Q6HR PRN #14 tablet 10/23/18 ED Review of Systems ROS: Stated complaint: SYNCOPE Other details as noted in HPI Comment: All other systems reviewed and negative Constitutional: denies: fever, malaise Cardiovascular: palpitations. denies: chest pain ED Past Medical Hx - Past Medical History Previous Medical History?: No Additional medical history: Headaches - Surgical History Past Surgical History?: No - Social History Smoking Status: Never Smoker Substance Use Type: None - Medications Home Medications: Home Medications Medication Instructions Recorded Confirmed Last Taken Type Acetaminophen/Codeine [Tylenol #3] 1 tab PO Q6H PRN #14 tab 02/05/15 Unknown Rx Amoxicillin/K Clav Tab [Augmentin 1 tab PO Q12HR #14 tab 02/05/15 Unknown Rx 875 mg] Cetirizine HCl [Allergy Relief] 10 mg PO DAILY #14 tablet 02/05/15 Unknown Rx Fluticasone [Flonase] 1 spray NS QDAY #1 bottle 02/05/15 Unknown Rx Ibuprofen [Motrin] 600 mg PO Q8H PRN #60 tablet 02/05/15 Unknown Rx Meloxicam [Mobic] 7.5 mg PO QDAY #5 tablet 12/07/16 Unknown Rx methOCARBAMOL [Robaxin TAB] 500 mg PO TID #15 tab 12/07/16 Unknown Rx Amoxicillin/Potassium Clav 1 each PO BID #10 tablet 07/31/18 Unknown Rx [Augmentin 875-125 Tablet] Fluticasone [Flonase] 1 spray NS QDAY #1 bottle 07/31/18 Unknown Rx Ibuprofen [Motrin 800 MG tab] 800 mg PO Q8HR PRN #20 tablet 07/31/18 Unknown Rx Cyclobenzaprine [Flexeril] 10 mg PO TID PRN #15 tablet 08/03/18 Unknown Rx Baclofen [Lioresal] 10 mg PO Q8H PRN #21 tab 08/20/18 Unknown Rx Ibuprofen [Motrin] 600 mg PO Q8H PRN #20 tablet 08/20/18 Unknown Rx Meclizine [Antivert] 25 mg PO Q8H PRN #30 tablet 08/20/18 Unknown Rx Ibuprofen [Motrin] 600 mg PO Q8H PRN #14 tablet 10/23/18 Unknown Rx traMADoL [Ultram 50 MG tab] 50 mg PO Q6HR PRN #14 tablet 10/23/18 Unknown Rx ED Physical Exam - General Limitations: No Limitations General appearance: alert, in no apparent distress - Head Head exam: Present: atraumatic, normocephalic - Eye Eye exam: Present: normal appearance - ENT ENT exam: Present: mucous membranes moist - Neck Neck exam: Present: normal inspection, full ROM. Absent: tenderness, meningismus - Respiratory Respiratory exam: Present: normal lung sounds bilaterally. Absent: respiratory distress, wheezes, rales, rhonchi - Cardiovascular Cardiovascular Exam: Present: regular rate, normal rhythm, normal heart sounds. Absent: bradycardia, tachycardia, systolic murmur, diastolic murmur, rubs, gallop - GI/Abdominal GI/Abdominal exam: Present: soft, normal bowel sounds. Absent: distended, tenderness, guarding, rebound - Rectal Rectal exam: Present: deferred - Extremities Exam Extremities exam: Present: normal inspection - Neurological Exam Neurological exam: Present: alert, oriented X3 - Psychiatric Psychiatric exam: Present: normal affect, normal mood. Absent: depressed, agitated, anxious, flat affect, manic, homicidal ideation, suicidal ideation - Skin Skin exam: Present: warm, dry, intact, normal color. Absent: rash ED Course Vital Signs 02/24/19 18:50 Temperature 98.6 F Pulse Rate 72 Respiratory 17 Rate Blood Pressure 103/75 O2 Sat by Pulse 98 Oximetry ED Medical Decision Making - EKG Data EKG shows normal: sinus rhythm, axis, intervals, QRS complexes, ST-T waves Rate: normal - EKG Data Interpretation: no acute changes, normal EKG - Medical Decision Making Mr. Love presents with recurrent syncope. Has reported anxiety and depression. With hx of insomnia, depression, anxiety, poor appetite. suspect MDD vs anxiety disorder. He will benefit from outpatient MH evaluation. He will also need primary care. I have referred him to our outpatient physician. I have referred him to the [facility]. No current SI HI. He has insight. He is quite honest with a supportive . I do suspect arrhythmia, PE (PERC negative), or dangerous causes of syncope. No indication of seizure. I suspect syncope due to poor po intake with above symptoms. Critical care attestation.: If time is entered above; I have spent that time in minutes in the direct care of this critically ill patient, excluding procedure time. ED Disposition Clinical Impression: Recurrent syncope, Anxiety and depression Disposition: DC-01 TO HOME OR SELFCARE Is pt being admited?: No Does the pt Need Aspirin: No Condition: Stable Instructions: Syncope (ED), Depression (ED), Anxiety (ED) Referrals: ESTEFANY MCDUFFIE MD [Staff Physician] - 3-5 Days [facility] [Outside] - 3-5 Days Forms: Work/School Release Form(ED)
[2019-02-24 20:51] VITALS: BP 104/61
== END 2019-02-24 20:15 | disposition home or self-care (01) ==
LOC: ED 18:16
DX: R55 Syncope and collapse (principal); F41.9 Anxiety disorder, unspecified; F32.9 Major depressive disorder, single episode, unspecified; Z79.899 Other long term (current) drug therapy
CPT/HCPCS: 93005; 93010

== ENCOUNTER 2019-02-26 23:33 | Emergency (ER) | payer SELFPAY ==
[2019-02-26 23:44] VITALS: BP 122/77
--- NOTE | 2019-02-27 01:48 | Emergency Department Report ---
Chief Complaint: Anxiety Stated Complaint: JOSEF/SHAKING/ACCIDENTAL INGESTION Time Seen by Provider: 02/27/19 01:34 - HPI History of Present Illness: 23-year-old -[place] male with a past medical history of anxiety and depression presents to the emergency room stating he's been shaking since he took his mother's Lexapro 1 pill. Patient currently takes no medications on a daily basis. Patient was recently seen here 3 days ago and was referred to mental health. Patient denies any homicidal suicidal ideation. - Exam Vital Signs: Vital Signs 02/26/19 23:40 Temperature 98.3 F Pulse Rate 59 L Respiratory 12 Rate Blood Pressure 122/77 O2 Sat by Pulse 100 Oximetry Physical Exam: Gen: alert oriented NAD Cardic: regular rate and rhythm no murmurs appreciated Resp: Clear to auscultation bilateral no wheezing no rales or rhonchi. Abdomen: Soft nontender nondistended normal bowel sounds. Mini neuro: Normal finger to nose exam, [id number] normal, Romberg neg, strengh 4/5 all extrimities, Alert and oriented time 3 Crainal nerve II-IIX intact patient has steady hand and gait when instructed to walk across the room. Patient is able to lift his body up with his hands and shoulders with steadiness. MSE screening note: Focused history and physical exam performed. Due to findings the following was ordered: ED Disposition for MSE Clinical Impression: Anxiety and depression Disposition: DC-01 TO HOME OR SELFCARE Is pt being admited?: No Does the pt Need Aspirin: No Condition: Stable Additional Instructions: Do not take medications that is not prescribed to you. Referrals: [facility] [Outside] - 3-5 Days Forms: Work/School Release Form(ED)
== END 2019-02-27 01:50 | disposition home or self-care (01) ==
LOC: ED 23:33
DX: F41.9 Anxiety disorder, unspecified (principal); F32.9 Major depressive disorder, single episode, unspecified